=== PATIENT | female | born 1960 | race Caucasian/White ===

== ENCOUNTER 2018-11-11 06:19 | Day surgery (SDC) | payer OTHER ==
[2018-11-11] MEDS ORDERED: DEXTROSE 50% 50 ML SYRINGE (07:08)
[2018-11-11] MEDS ORDERED: CARBACHOL 0.01% 1.5 ML OPH INJ (07:30)
[2018-11-11] MEDS ORDERED: CEFAZOLIN 1 GM INJ (07:30)
[2018-11-11] MEDS ORDERED: GENTAMICIN 80 MG INJ (07:30)
[2018-11-11] MEDS ORDERED: BUPIVACAINE 0.75% (MPF) 10 ML INJ (07:30)
[2018-11-11] MEDS ORDERED: LIDOCAINE 2% (SDV) 5 ML INJ ×2 (07:30→07:56)
[2018-11-11] MEDS ORDERED: EPINEPHrine 1 MG INJ (07:31)
[2018-11-11] MEDS ORDERED: DEXAMETHASONE 4 MG/ML 1 ML INJ (07:31)
[2018-11-11] MEDS: CEFAZOLIN 1 GM INJ INJ (07:35)
[2018-11-11] MEDS: CARBACHOL 0.01% 1.5 ML OPH INJ IO (07:35)
[2018-11-11] MEDS: DEXTROSE 50% 50 ML SYRINGE IV (07:35)
[2018-11-11] MEDS: CYCLOPENTOLATE/PHENYLEPH 2 ML OPH OPER (07:35)
[2018-11-11] MEDS: DEXAMETHASONE 4 MG/ML 1 ML INJ INJ (07:35)
[2018-11-11] MEDS: TROPICAMIDE 1% 15 ML OPH OPER (07:36)
[2018-11-11] MEDS: MOXIFLOXACIN 0.5% 3 ML OPH OPER (07:37)
[2018-11-11] MEDS: DICLOFENAC 0.1% 2.5 ML OPH OPER (07:37)
[2018-11-11] MEDS: SOD CHLORIDE 0.9% 1,000 ML IV (07:38)
[2018-11-11] MEDS ORDERED: PROPOFOL 20 ML (07:56)
[2018-11-11] MEDS ORDERED: ACETAMINOPHEN 325 MG TAB PO (08:00)
[2018-11-11] MEDS ORDERED: ALBUTEROL 0.083% (NEB) 2.5 MG/3 ML AMP HHN (08:00)
[2018-11-11] MEDS ORDERED: DIPHENHYDRAMINE 50 MG INJ IV (08:00)
[2018-11-11] MEDS ORDERED: ONDANSETRON 4 MG INJ IV (08:00)
[2018-11-11] MEDS ORDERED: hydrALAzine 20 MG INJ IV (08:00)
[2018-11-11] MEDS ORDERED: OXYCODONE/ACETAMINOPHEN (5/325) TAB PO (08:00)
[2018-11-11] MEDS ORDERED: LABETALOL HCL 20MG INJ IV (08:00)
[2018-11-11] MEDS: FENTAnyl 50 MCG/ML VIAL IV (09:01)
[2018-11-11] MEDS: ACETAMINOPHEN 500 MG TAB PO (10:41)
== END 2018-11-11 10:39 | disposition home or self-care (01) ==
LOC: SDS 06:19
DX: H26.9 Unspecified cataract (principal); E11.319 Type 2 diabetes mellitus with unspecified diabetic retinopathy without macular edema; E78.00 Pure hypercholesterolemia, unspecified; E78.5 Hyperlipidemia, unspecified; I12.9 Hypertensive chronic kidney disease with stage 1 through stage 4 chronic kidney disease, or unspecified chronic kidney disease; N18.9 Chronic kidney disease, unspecified; E11.22 Type 2 diabetes mellitus with diabetic chronic kidney disease; Z79.4 Long term (current) use of insulin
CPT/HCPCS: 66984; 82962

== ENCOUNTER 2019-02-07 05:26 | Day surgery (SDC) | payer OTHER ==
[2019-02-07] MEDS: SOD CHLORIDE 0.9% 1,000 ML IV (06:12)
[2019-02-07] MEDS: TROPICAMIDE 1% 15 ML OPH OPER (06:12)
[2019-02-07] MEDS: MOXIFLOXACIN 0.5% 3 ML OPH OPER (06:12)
[2019-02-07] MEDS: DICLOFENAC 0.1% 2.5 ML OPH OPER (06:12)
[2019-02-07] MEDS: CYCLOPENTOLATE/PHENYLEPH 2 ML OPH OPER (06:13)
[2019-02-07] MEDS ORDERED: CEFAZOLIN 1 GM INJ (06:48)
[2019-02-07] MEDS ORDERED: DEXAMETHASONE 4 MG/ML 1 ML INJ (06:49)
[2019-02-07] MEDS ORDERED: GENTAMICIN 80 MG INJ (06:49)
[2019-02-07] MEDS ORDERED: EPINEPHrine 1 MG INJ (06:50)
[2019-02-07] MEDS ORDERED: PROPOFOL 20 ML (07:32)
[2019-02-07] MEDS: CARBACHOL 0.01% 1.5 ML OPH INJ (08:03)
[2019-02-07] MEDS: LIDOCAINE 4% (MPF) 5 ML INJ (08:03)
[2019-02-07] MEDS: TETRACAINE 0.5% 4 ML OPH (08:03)
[2019-02-07] MEDS ORDERED: LABETALOL HCL 20MG INJ (08:06)
[2019-02-07] MEDS: NA HYALURONATE/CHONDROITIN 0.5 ML SYG RIGHT EYE (08:11)
[2019-02-07] MEDS ORDERED: NA HYALURONATE/CHONDROITIN 0.5 ML SYG (08:23)
[2019-02-07] MEDS ORDERED: LIDOCAINE 4% (MPF) 5 ML INJ (08:23)
[2019-02-07] MEDS ORDERED: METOCLOPRAMIDE 10 MG INJ IV (08:30)
[2019-02-07] MEDS ORDERED: EPHEDrine SULFATE 50 MG/5 ML SYG IV (08:30)
[2019-02-07] MEDS ORDERED: MIDAZOLAM 1 MG/ML 2 ML INJ IV (08:30)
[2019-02-07] MEDS ORDERED: hydrALAzine 20 MG INJ IV (08:30)
[2019-02-07] MEDS ORDERED: DIPHENHYDRAMINE 50 MG INJ IV (08:30)
[2019-02-07] MEDS ORDERED: ONDANSETRON 4 MG INJ IV (08:30)
[2019-02-07] MEDS ORDERED: OXYCODONE/ACETAMINOPHEN (5/325) TAB PO (08:30)
[2019-02-07] MEDS ORDERED: LABETALOL HCL 20MG INJ IV (08:30)
[2019-02-07] MEDS ORDERED: MEPERIDINE 25 MG INJ IV (08:30)
[2019-02-07] MEDS: OXYCODONE/ACETAMINOPHEN (5/325) TAB PO (08:47)
== END 2019-02-07 09:50 | disposition home or self-care (01) ==
LOC: SDS 05:26
DX: H25.041 Posterior subcapsular polar age-related cataract, right eye (principal); I10 Essential (primary) hypertension; E11.9 Type 2 diabetes mellitus without complications; E78.5 Hyperlipidemia, unspecified
CPT/HCPCS: 66984; 82962